=== PATIENT | female | born 1940 | race Native Hawaiian/Other Pacific Islander ===

== ENCOUNTER → 2017-02-20 | Outpatient (CLI) | payer MEDICARE ==
[2017-02-20 14:58] LABS: Blood Urea Nitrogen 17 mg/dL (7-17); Non-African American GFR(MDRD) >60 (>60 ml/min/1.73 sqM)
--- NOTE | 2017-02-20 15:42 | CT ---
EXAMINATION TYPE: CT soft tissue neck w con DATE OF EXAM: 02/20/2017 HISTORY: Hoarseness and throat fullness. COMPARISON: NONE CT DLP: 257.3 mGycm. Automated Exposure Control for Dose Reduction was Utilized. TECHNIQUE: CT scan of the neck is performed with IV Contrast, patient injected with 100 mL of Omnipa que 300, axial images are obtained, coronal and sagittal reformatted images are reviewed. FINDINGS: Airway: The vocal cords are approximated with no identifiable or measurable lesion. No abnormal enhan cement. Parotid/submandibular glands: No gross abnormality seen. Carotid/Vascular Structures: No evidence of focal stenosis. No visualized aneurysmal dilatation. Righ t vertebral artery is dominant. Osseous Structures: Degenerative disc disease is appreciated of C3-C7 with reversal of the usual cerv ical lordosis , apex at C4. Multilevel at least mild spinal canal stenosis is seen at these levels wi th endplate sclerosis, anterior osteophytes, and uncovertebral hypertrophy present. Other: Incidental note is made of multiple low-density left thyroid nodules. Each of these is subcent imeter and of questionable clinical significance. No pneumothorax within the lung apices. IMPRESSION: 1. No CT finding to correspond with the patient's symptomatology. If clinical symptoms continue direc t visualization would be recommended. 2. Degenerative disc disease from 3 through C7 with reversal of the usual cervical lordosis and at le ast mild resultant spinal canal stenosis from C3 through C6.
== END | disposition home or self-care (01) ==
LOC: RADCTMAIN 14:22
PROVIDERS: ATTEND Otolaryngology
DX: R49.0 Dysphonia (principal); M48.02 Spinal stenosis, cervical region; M50.31 Other cervical disc degeneration, high cervical region; M43.8X2 Other specified deforming dorsopathies, cervical region
CPT/HCPCS: 82565; 84520; 70491; 36415; Q9967